=== PATIENT | female | born 1975 | race Caucasian/White ===

== ENCOUNTER 2017-12-03 12:02 | Emergency (ER) | payer OTHER ==
[~2017-12-03] VITALS: Ht 170.2 cm; Wt 161.6 kg
--- OUTSIDE RECORDS SUMMARY | ~2017-12-03 | XMS | Clinical Summary ---
Demographics + + + | Address | [address] | | | [place] [address] | + + + | Home Phone | | + + + | Preferred Language | Unknown | + + + | Marital Status | | + + + | Religion Affiliation | 1027 | + + + | Race | Unknown | + + + | Ethnic Group | Unknown | + + + Author + + + | Author | [facility] | | | and [place] | + + + | Organization | [facility] | | | and [facility] | + + + | Address | Unknown | + + + | Phone | Unavailable | + + + Support + + + + + | Name | Relationship | Address | Phone | + + + + + | Rui Perez | ECON | [address] | | | | [place], [place] | | | | | [address] | | + + + + + | Barry Doherty | ECON | [place] | | | | | [address] | | + + + + + Care Team Providers + +------+ + | Care Personal Care Service Provider Name | Role | Phone | + +------+ + | Larisa Mcnally PA-C | PP | | + +------+ + Allergies + + + + + + | Active Allergy | Reactions | Severity | Noted | Comments | | | | | Date | | + + + + + + | Amoxicillin | Hives | Low | 04/06/20 | | | | | | 16 | | + + + + + + | Penicillins | Anaphylaxis | High | 05/25/20 | Hard to breathe, | | | | | 13 | chest tightness, | | | | | | hives, itching. | | | | | | Quick onset | + + + + + + Current Medications + + +-------+---------+------+------+-------+ | Prescription | Sig. | Disp. | Refills | Star | End | Statu | | | | | | t | Date | s | | | | | | Date | | | + + +-------+---------+------+------+-------+ | omeprazole | Take 40 mg by mouth | | | | | Activ | | (PRILOSEC) 40 MG | every morning | | | | | e | | capsule | (before breakfast). | | | | | | + + +-------+---------+------+------+-------+ | | Take 1 tablet by | | | | | Activ | | abacavir-dolutegravi | mouth Daily. | | | | | e | | r-lamiVUDine | Indications: HIV | | | | | | | (TRIUMEQ) 600-50-300 | Disease | | | | | | | mg per | | | | | | | | tabletIndications: | | | | | | | | Human | | | | | | | | Immunodeficiency | | | | | | | | Virus Disease | | | | | | | + + +-------+---------+------+------+-------+ | Norethindrone-Eth | Take by mouth | | | | | Activ | | Estradiol (DASETTA | Daily. | | | | | e | | 1/35 PO) | | | | | | | + + +-------+---------+------+------+-------+ Active Problems + + + | Problem | Noted Date | + + + | KENIA (obstructive sleep apnea) | 06/25/2016 | + + + | Leg edema, left | 03/15/2016 | + + + | Carpal tunnel syndrome of right wrist | 05/25/2013 | + + + | HIV (human immunodeficiency virus infection) (HCC) | 02/28/2007 | + + + Immunizations + + + + | Name | Dates Previously Given | Next Due | + + + + | HEP A, 2 DOSE | 08/13/2007, 06/21/2007 | | | (ADULT) | | | + + + + | HEP B, 3 DOSE | 06/28/2008, 08/19/2007, 06/12/2007 | | | (ADULT) | | | + + + + | INFLUENZA PF 18 Y OR | 06/19/2016, 05/26/2013, 05/27/2012 | | | >,TRIVALENT | | | | RECOMBINANT | | | + + + + | MMR, 2 DOSE | 10/27/1991 | | | (PED/ADULT) | | | + + + + | PNEUMOCOCCAL | 03/01/2015 | | | POLYSACCHARIDE | | | | 23-VALENT (PPSV23) | | | + + + + | TDAP, (ADOL/ADULT) | 09/11/2013, 11/16/1991 | | + + + + Family History + + +------+ + | Medical History | Relation | Name | Comments | + + +------+ + | No Known Problems | Brother | | | + + +------+ + | COPD | Father | | | + + +------+ + | Cancer | Father | | Lung cancer | + + +------+ + | Heart attack | Father | | | + + +------+ + | Heart arrhythmias | Mother | | | + + +------+ + | High blood pressure | Mother | | | + + +------+ + | Sleep Apnea | Mother | | | + + +------+ + + +------+--------+ + | Relation | Name | Status | Comments | + +------+--------+ + | Brother | | Alive | | + +------+--------+ + | Father | | Alive | | + +------+--------+ + | Mother | | Alive | | + +------+--------+ + Social History + +-------+ +--------+------+ | Tobacco Use | Types | Packs/Day | Years | Date | | | | | Used | | + +-------+ +--------+------+ | Never Smoker | | | | | + +-------+ +--------+------+ + +---+---+---+ | Smokeless Tobacco: | | | | | Never Used | | | | + +---+---+---+ + + +---------+ + | Alcohol Use | Drinks/We | oz/Week | Comments | | | ek | | | + + +---------+ + | No | | | | + + +---------+ + + + + | Sex Assigned at | Date Recorded | | | | + + + | Not on file | | + + + Last Filed Vital Signs + + + + | Vital Sign | Reading | Time Taken | + + + + | Blood Pressure | 124/84 | 06/25/2016 1342 PST | + + + + | Pulse | 105 | 06/25/2016 1342 PST | + + + + | Temperature | 36.7 C (98.1 F) | 06/17/2014 1253 PST | + + + + | Respiratory Rate | 18 | 06/25/2016 1342 PST | + + + + | Oxygen Saturation | 95% | 06/17/20141524 PST | + + + + | Inhaled Oxygen | - | - | | Concentration | | | + + + + | Weight | 152.4 kg (336 lb) | 06/25/20161341 PST | + + + + | Height | 170.2 cm (5' 7") | 06/25/20161341 PST | + + + + | Body Mass Index | 52.63 | 06/25/20161341 PST | + + + + Plan of Treatment + + + + + | Health Maintenance | Due Date | Last Done | Comments | + + + + + | CERVICAL CANCER | | | | | SCREENING (PAP EVERY | 8 | | | | 3 YEARS ) | | | | + + + + + | Vaccine: | | 03/01/2015 | | | Pneumococcal 19-64 | 6 | | | | Highest Risk (2 of 3 | | | | | - PCV13) | | | | + + + + + | Vaccine: Influenza | | 06/19/2016, 05/26/2013, | | | (Season Ended) | 8 | 05/27/2012 | | + + + + + | Vaccine: | | 09/11/2013, 11/16/1991 | | | Dtap/Tdap/Td (3 - | 4 | | | | Td) | | | | + + + + + Results Not on filefrom Last 3 Months Insurance + +--------+ +--------+ +---------+ | Payer | Benefi | Subscriber | Type | Phone | Address | | | t Plan | ID | | | | | | / | | | | | | | Group | | | | | + +--------+ +--------+ +---------+ | [employer] | PHP | xxxxxxxxxxx | PPO | [phone] | | | PLAN | [place] | | | [phone] | | | | [place] | | | | | | | [place] | | | | | + +--------+ +--------+ +---------+ | [employer] | CAREAS | [id number] | Indemn | [phone] | | | | SIST | | ity | [phone] | | + +--------+ +--------+ +---------+ + +--------+ +--------+ + + | Guarantor Name | Accoun | Relation to | Date | Phone | Billing Address | | | t Type | Patient | of | | | | | | | | | | + +--------+ +--------+ + + | KATLIN PEREZ | Person | Self [birth year] | Home: | [address] | | [place] | al/Fam | | 1976 | [phone] | [place] [address] | | | [place] | | | [phone] | | + +--------+ +--------+ + +
--- OUTSIDE RECORDS SUMMARY | ~2017-12-03 | XMS | Clinical Summary ---
Demographics + + + | Address | [address] | | | [place] [address] | + + + | Home Phone | | + + + | Preferred Language | Unknown | + + + | Marital Status | | + + + | Spiritism Affiliation | 1027 | + + + | Race | Unknown | + + + | Ethnic Group | Unknown | + + + Author + + + | Author | [facility] | | | and Anupamana | + + + | Organization | [facility] | | | and Anupamana [...] [place], [place] | | | | | [address] | | + + + + + | Barry Doherty | ECON | [place] | | | | | [address] | | + + + + + Care Team Providers + +------+ + | Care Pattern Marker Name | Role | Phone | + [...] | PHP | [phone] | PPO | [phone] | | | PLAN | [place] | | | [phone] | | | | [place] | | | | | | | [place] | | | | | + +--------+ +--------+ +---------+ | [employer]SI[employer] | CAREAS | [phone] | Indemn | [phone] | | | | SIST | | [...] | Self | [birth year] | Home: | [address] [facility] [address] [address] | | [place] | al/Fam | | 1976 | [phone] | [place] [address] | | | [address] | | | [phone] | | + +--------+ +--------+ + +
[~2017-12-03 12:02] MED LIST: ALEVE220 MG PO; BIRTH CONTROL PILL; DAILY MULTIPLE1 EACH PO; ESCITALOPRAM OXA5 MG PO; ISENTRESS100 MG PO; KEFLEX500 MG PO; PRILOSEC20 MG PO; PROAIR HFA8.5 GM INH; RANITIDINE HCL150 MG PO; TRIUMEQ TABLET1 EACH PO; TRUVADA 200 MG1 EACH PO; XARELTO15 MG PO
--- NOTE | 2017-12-04 07:34 | EKG ---
[facility] [address] [facility] [place] [address] Signed Normal sinus rhythm Normal ECG When compared with ECG of 05-SEP-2016 18:00, T wave amplitude has decreased in Anterolateral leads Confirmed by JS AUGUSTINE MD ([id number]) on 12/04/2017 7:34:39 AM Electronically Signed By: JS AUGUSTINE MD 12/04/17 0734 PATIENT NAME: LINDY GARCIA Electrocardiogram DATE OF : 77 PHYSICIAN: JS AUGUSTINE MD REPORT #: [id number] REPORT IS CONFIDENTIAL AND NOT TO BE RELEASED WITHOUT AUTHORIZATION
== END 2017-12-03 14:30 | disposition home or self-care (01) ==
LOC: ED 12:02
DX: R60.9 Edema, unspecified (principal); Z88.0 Allergy status to penicillin; Z79.899 Other long term (current) drug therapy
CPT/HCPCS: 71046; 80053; 84484; 85025; 85379; 93005; 93010; 99283